=== PATIENT | female | born 1940 | race Caucasian/White ===

== ENCOUNTER 2016-09-30 11:33 | Emergency (ER) | payer MEDICARE, OTHER ==
[~2016-09-30] VITALS: Ht 160 cm; Wt 66.5 kg
[~2016-09-30 11:33] MED LIST: OMEG1CAP2 PO
[2016-09-30 11:44] VITALS: Ht 160 cm; Wt 66.5 kg
[2016-09-30] MEDS ORDERED: AZIT250T94 PO (12:52)
[2016-09-30] MEDS ORDERED: ELIM TOP (12:52)
[2016-09-30] MEDS ORDERED: BENZ100C70 PO (12:52)
[2016-09-30] MEDS ORDERED: CLOT30CR24 TOP (12:54)
[2016-09-30] MEDS ORDERED: FLUC150T17 PO (12:54)
--- NOTE | 2016-09-30 13:15 | ERD ---
ER Documentation Chief Complaint Date/Time DATE: 09/30/16 TIME: 13:14 Chief Complaint cough and full body rash x wk HPI Patient is a 76-year-old female who presents to the emergency department with a cough and rash. Patient states her cough has been present for last month. Patient describes cough to be productive in nature. Patient states that she has been taking Robitussin with some relief of symptoms. Patient also reports clear rhinorrhea. Patient denies any chest pain, shortness of breath, arm pain, diaphoresis, fever or chills. Patient denies any nausea or vomiting. Patient also complaining of a rash on her arms and in her genital areas. Patient states that the rash in her arm is similar to a rash her son has. Patient and her son live together. Patient also reports itching throughout her entire body. Patient states that her genital area is red in color and itchy. Patient has been using vagisil cream with no alleviation of symptoms. Patient denies any vaginal pain or bleeding. Patient denies any new creams, lotions, foods or environments. ROS All systems reviewed and are negative except as per history of present illness. Medications Home Meds Active Scripts Fluconazole* (Diflucan*) 150 Mg Tablet, 150 MG PO ONCE, #1 TAB Prov:MISSAEL ESPINOZA-C 09/30/16 Clotrimazole* (Clotrimazole* AF) 1% - 30 Gm Cream.gm., 1 APPLIC TOP BID for 7 Days, #1 TUB Prov:MISSAEL ESPINOZA-C 09/30/16 Benzonatate* (Tessalon Perle*) 100 Mg Capsule, 100 MG PO Q8H Y for COUGH, #20 CAP Prov:MISSAEL ESPINOZA-C 09/30/16 Azithromycin* (Zithromax*) 250 Mg Tablet, 250 MG PO .ZPACK DIRECTED, #6 TAB TAKE 500 MG (2 TABS) THE FIRST DAY THEN 250 MG (1 TAB) DAYS 2-5 Prov:MISSAEL ESPINOZA-C 09/30/16 Permethrin* (Elimite*) 5% Cr, 1 APPLIC TOP ONCE, #1 TUB Prov:MISSAEL ESPINOZA-C 09/30/16 [place]-3 Acid Ethyl Esters (Lovaza) 1 Gm Capsule, 2 GM PO BID for 30 Days, CAP 1 Refill Prov:NIMISHA SAUCEDO 01/23/16 Allergies Allergies: Coded Allergies: No Known Allergy (Unverified , 01/22/16) PMhx/Soc History of Surgery: Yes (hysterectomy) Anesthesia Reaction: No Hx Neurological Disorder: No Hx Respiratory Disorders: No Hx Cardiac Disorders: No Hx Psychiatric Problems: No Hx Miscellaneous Medical Probl: Yes (high cholesterol,GERD) Hx Alcohol Use: No Hx Substance Use: No Hx Tobacco Use: No Physical Exam Vitals Vital Signs Date Time Temp Pulse Resp B/P Pulse Ox O2 Delivery O2 Flow Rate FiO2 09/30/16 11:44 98.0 73 18 112/56 95 Physical Exam GENERAL: Well-developed, well-nourished male. Appears in no acute distress. HEAD: Normocephalic, atraumatic. No deformities or ecchymosis. EYE: Pupils equal, round, and reactive to light. EOMs intact. No conjunctival erythema. ENT: External ear without any masses or tenderness. Auditory canals clear bilaterally. TM visualized bilaterally, non-erythematous, non-bulging. Nasal mucosa pink with no discharge. Oropharynx is pink without any tonsillar erythema or exudates. No uvula deviation. No kissing tonsils. NECK: Supple. No lymphadenopathy or thyromegaly. No meningismus. No JVD. No bruits. Trachea midline. LUNG: Clear to auscultation bilaterally. No rhonchi, wheezing, rales or coarse breath sounds. HEART: Regular rate and rhythm. No murmurs, rubs or gallops. ABDOMEN: No scars, ecchymosis or rashes noted. Soft, nontender, and nondistended. No rebound tenderness, no guarding. (-) McBurneys point tenderness. GENITAL: External genitalia and inguinal folds with erythematous rash, few satellite lesions noted EXTREMITIES: Equal pulses bilaterally. No peripheral clubbing, cyanosis or edema. No unilateral leg swelling. NEUROLOGIC: Alert and oriented to person, place and time. Moving all four extremities. Normal speech. Steady gait. SKIN: Normal color. Warm and dry. Erythematous papules in a linear formation noted on patient's right forearm and patient's abdomen. Procedures/MDM MEDICAL DECISION MAKING: This is a 76 year old female who presents with a cough x 1 month and numerous rashes. Vital signs were reviewed. Patient was afebrile. Patient was not hypoxic. Given that patient's cough has been present was 1 month and is productive in nature, patient's symptoms are most consistent with acute bronchitis. Patient will be given a Z-darcy and Tessalon perles. Low suspicion for pneumonia, asthma, influenza, GERD, CHF, strep pharyngitis, acute otitis media, otitis externa, meningitis. Patient's rash in her genital area is most consistent with candidiasis. Patient will be given a prescription of clotrimazole for this rash. Patient's rashes on her right arm and abdomen are most consistent with scabies. Given that patient' s son is also having a similar rash with many more lesions, the patient will be treated with Permethrin. Low suspicion for necrotizing fasciitis, sepsis, gangrene, Bobo-Alvaro syndrome, toxic epidural necrolysis, herpes zoster. PRESCRIPTIONS: Zpak, Tessalon perles, Diflucan, Clotrimazole cream, Permethrin DISCHARGE: At this time, patient is stable for discharge and outpatient management. I have advised the patient to avoid any new products, creams or possible allergens. I have advised the patient to avoid scratching the lesions. I have instructed the patient to follow-up with his/her primary care physician in 1-2 days. If symptoms persist, patient may need to see a core sticker for further examinations and testing. I have instructed the patient to promptly return to the ER at any time for any new or worsening symptoms including increased pain, fever, redness, swelling, warmth, difficulty breathing or vomiting. The patient and/or family expressed understanding of and agreement with this plan. All questions were answered. Home care instructions were provided. Departure Diagnosis: Primary Impression: Acute bronchitis Bronchitis organism: unspecified organism Qualified Code: J20.9 - Acute bronchitis, unspecified organism Additional Impressions: Multiple complaints Candidiasis of female genitalia Scabies Condition: Stable Patient Instructions: Acute Bronchitis, Scabies Referrals: COMMUNITY CLINICS YOU HAVE RECEIVED A MEDICAL SCREENING EXAM AND THE RESULTS INDICATE THAT YOU DO NOT HAVE A CONDITION THAT REQUIRES URGENT TREATMENT IN THE EMERGENCY DEPARTMENT. FURTHER EVALUATION AND TREATMENT OF YOUR CONDITION CAN WAIT UNTIL YOU ARE SEEN IN YOUR DOCTORS OFFICE WITHIN THE NEXT 1-2 DAYS. IT IS YOUR RESPONSIBILITY TO MAKE AN APPOINTMENT FOR FOLOW-UP CARE. IF YOU HAVE A PRIMARY DOCTOR --you should call your primary doctor and schedule an appointment IF YOU DO NOT HAVE A PRIMARY DOCTOR YOU CAN CALL OUR PHYSICIAN REFERRAL HOTLINE AT IF YOU CAN NOT AFFORD TO SEE A PHYSICIAN YOU CAN CHOSE FROM THE FO[facility] [address] [facility] [address] [facility] [address] [facility] [address] [facility] [address] [facility]. [facility] [address] [facility]. [facility] YOU HAVE RECEIVED A MEDICAL SCREENING EXAM AND THE RESULTS INDICATE THAT YOU DO NOT HAVE A CONDITION THAT REQUIRES URGENT TREATMENT IN THE EMERGENCY DEPARTMENT. FURTHER EVALUATION AND TREATMENT OF YOUR CONDITION CAN WAIT UNTIL YOU ARE SEEN IN YOUR DOCTORS OFFICE WITHIN THE NEXT 1-2 DAYS. IT IS YOUR RESPONSIBILITY TO MAKE AN APPOINTMENT FOR FOLOW-UP CARE. IF YOU HAVE A PRIMARY DOCTOR --you should call your primary doctor and schedule and appointment IF YOU DO NOT HAVE A PRIMARY DOCTOR YOU CAN CALL OUR PHYSICIAN REFERRAL HOTLINE AT . IF YOU CAN NOT AFFORD TO SEE A PHYSICIAN YOU CAN CHOSE FROM THE FOLLOWING [facility]: [facility] [address] [place] [address] [facility] [address] [place] [address] [facility] [address] [place] [address] Additional Instructions: Call your primary care doctor TOMORROW for an appointment during the next 1-2 days.See the doctor sooner or return here if your condition worsens before your appointment time. MISSAEL ESPINOZA PA-C Sep 30, 2016 13:15
== END 2016-09-30 13:20 | disposition home or self-care (01) ==
LOC: FTE 11:33
DX: J20.9 Acute bronchitis, unspecified (principal); B86 Scabies; B37.3 Candidiasis of vulva and vagina
CPT/HCPCS: 99284